=== PATIENT | female | born 1980 | race Caucasian/White ===

== ENCOUNTER 2020-04-02 20:26 | Emergency (ER) | payer OTHER, SELFPAY ==
[~2020-04-02] VITALS: Ht 172.7 cm; Wt 90.8 kg
--- NOTE | 2020-04-02 20:37 | NUR ---
PT TRAVELED TO [place] ([facility]), RETURNED March. DID SELF-QUARANTINE IN [place].
[2020-04-02] MEDS ORDERED: ESTR1POW13 PO (20:51)
[2020-04-02] MEDS ORDERED: LITH300T3 PO (20:53)
[2020-04-02] MEDS ORDERED: QUET25TA5 PO (20:53)
[2020-04-02] MEDS ORDERED: PROM25SU35 PR (20:54)
[2020-04-02] MEDS ORDERED: BACL20TA PO (20:56)
[2020-04-02] MEDS ORDERED: HYDR-3245 PO (20:57)
--- NOTE | 2020-04-02 20:58 | NUR ---
MARIELA FU AT BS WITH FEMALE NURSE, NÉSTOR FOR ANOSCOPE. PT VSS AND UPDATED IN EMR. PT HISTORY AND ASSESSMENT OBTAINED. PT RESTING CALM IN GURNEY AT THIS TIME. PT ALLERGIES AND MEDICAL HISTORY UPDATED IN EMR. LAB AT BS FOR PT BLOOD DRAW. PT DENIES ANY NEEDS AT THIS TIME.
[2020-04-02] MEDS ORDERED: SODIUM CHLORIDE FLUSH 10ML SYR IVF ONE (21:00)
--- NOTE | 2020-04-02 21:05 | NUR ---
TASK RN: RECTAL EXAM COMPLETED BY KEVIN MALLORY WITH ASSISTANCE FROM THIS RN. PT TOLERATED WELL.
[2020-04-02 21:22] LABS: BASOPHILS # (AUTO) 0.05 x10^3/uL (0-0.1); BASOPHILS % (AUTO) 0 % (0-1); EOSINOPHILS % (AUTO) 2 % (1-7); LYMPHOCYTES # (AUTO) 4.34 x10^3/uL (1-3.4); LYMPHOCYTES % (AUTO) 33 % (22-44); MD NO; MEAN CORPUSCULAR HEMOGLOBIN 28.7 pg (27.0-34.8); MEAN CORPUSCULAR HGB CONC 32.9 g/dL (32.4-35.8); MEAN CORPUSCULAR VOLUME 87.3 fL (80-100); MEAN PLATELET VOLUME 9.5 fL (7.4-10.4); MONOCYTES # (AUTO) 0.87 x10^3/uL (0.2-0.8); MONOCYTES % (AUTO) 7 % (2-9); NEUTROPHILS # (AUTO) 7.83 x10^3/uL (1.8-6.8); NEUTROPHILS % (AUTO) 59 % (42-75); PLATELET COUNT 400 x10^3/uL (130-400); RED BLOOD COUNT 4.33 x10^6/uL (3.82-5.3); RED CELL DISTRIBUTION WIDTH 14.4 % (9.6-15.2)
--- NOTE | 2020-04-02 21:25 | NUR ---
IV ACCESS ESTABLISHED AT THIS TIME. PT VERBALIZES UNDERSTANDING OF NEED FOR CT.
[2020-04-02 21:34] LABS: ALANINE AMINOTRANSFERASE 20 U/L (12-78); ALBUMIN 3.8 g/dL (3.4-5.0); ANION GAP 6 mmol/L (5-15); CALCIUM 9.1 mg/dL (8.5-10.1); CHLORIDE 107 mmol/L (98-107); CREATININE 1.29 mg/dL (0.55-1.02)
[2020-04-02 21:36] LABS: ALKALINE PHOSPHATASE 70 U/L (45-117); BILIRUBIN,TOTAL 0.2 mg/dL (0.2-1.0); TOTAL PROTEIN 7.5 g/dL (6.4-8.2)
[2020-04-02] MEDS ORDERED: DIPHENHYDRAMINE 50 MG/ML, 1ML IVPush PRN (22:00)
[2020-04-02 22:52] LABS: MICROSCOPIC AUTO
[2020-04-02 22:53] LABS: CULTURE INDICATED? YES
[2020-04-02] MEDS ORDERED: OMNIPAQUE 350 MG/ML, 100ML BOTTLE ONE (23:01)
[2020-04-02] MEDS ORDERED: NITROFURANTOIN (MACROBID) 100 MG CAPSULE ONE (23:13)
[2020-04-02 23:22] VITALS: BP 119/74
--- NOTE | 2020-04-02 23:25 | NUR ---
PT D/C WITH D/C SUMMARY AND SCRIPTS. ALL QUESTIONS ANSWERED. PT DENIES ANY OTHER NEEDS PERTAINING TO THIS VISIT AND AMBULATES TO REGISTRATION DESK WITH STEADY GAIT. PT IV D/C WITH TIP INTACT AND ALL VSS PRIOR TO D/C.
[2020-04-02] MEDS ORDERED: NITROFURANTOIN (MACROBID) 100 MG CAPSULE PO ONE (23:30)
== END 2020-04-02 23:31 | disposition home or self-care (01) ==
LOC: ED 22:15
DX: N39.0 Urinary tract infection, site not specified (principal); R10.9 Unspecified abdominal pain; K62.89 Other specified diseases of anus and rectum; M79.7 Fibromyalgia; F17.210 Nicotine dependence, cigarettes, uncomplicated; G35 Multiple sclerosis; Z90.710 Acquired absence of both cervix and uterus; Z90.49 Acquired absence of other specified parts of digestive tract
CPT/HCPCS: 36415; 46600; 74177; 80053; 81001; 83690; 85025; 87077; 87086; 99285; 99406; Q9967; 87186